=== PATIENT | female | born 1965 | race Caucasian/White ===

== ENCOUNTER → 2016-07-28 | Outpatient (CLI) | payer BC ==
[~2016-07-28] MED LIST: ALPR-412 PO; FLUT0.0529 NAE; LEVA45AE INH; LMC25 PO; MELO15TA10 PO; MONT1TAB3 PO; OXYC-57 PO; PARO30TA PO; RIZA10TA19 PO; SPRIN/30 INH; TOPI50TA24 PO; ZOLP10TA PO
== END | disposition home or self-care (01) ==
LOC: C.CPL 19:39
PROVIDERS: ATTEND Otolaryngology
DX: Z01.810 Encounter for preprocedural cardiovascular examination (principal)

== ENCOUNTER → 2016-07-31 | Day surgery (SDC) | payer BC ==
[2016-07-24 08:04] VITALS: Ht 162.6 cm; Wt 79.5 kg
--- NOTE | 2016-07-30 08:29 | History and Physical: Surg Cnt ---
History & Physical Date Jul 30, 2016. Chief Complaint sinusitis History of Present Illness The patient is a 50 year old female with complaints of chronic sinusitis Past Medical/Surgical History Medical Problems: (1) Asthma (2) Cholecystectomy (3) Migraines Additional History Hepatic Disease: No Endocrine Disorder: No Kidney Disease: No Hypertension: No Heart Disease: No Bleeding Tendencies: No Infectious Diseases: No Allergies Coded Allergies: Chocolate (Verified Adverse Reaction, Mild, MIGRAINE, 07/24/16) Diclofenac (Unverified Adverse Reaction, Mild, GI SYMPTOMS, 07/24/16) Peanut (Verified Adverse Reaction, Mild, MIGRAINE, 07/24/16) Home Medications Scheduled Fluticasone Propionate (Nasal) (Flonase), 2 SPRAYS MARION BID Lamotrigine (Lamotrigine), 2 TAB PO BID Meloxicam (Mobic), 15 MG PO QAM Paroxetine Hcl (Paxil), 30 MG PO QAM Topiramate (Topamax), 50 MG PO HS Scheduled PRN Alprazolam (Alprazolam), 1 TAB PO TID PRN for Anxiety Montelukast Sodium (Singulair), 10 MG PO HS PRN for PRN Rizatriptan Benzoate (Maxalt-[employer]), 10 MG PO UD PRN for Migraine Zolpidem Tartrate (Ambien), 10 MG PO HS PRN for Sleep Physical Examination Skin: warm/dry, no rash Eyes: normal inspection, EOMI, sclerae normal ENT: normal ENT inspection, pharynx normal Head: normocephalic, atraumatic Neck: supple, no adenopathy, trachea midline Respiratory/Chest: lungs clear, normal breath sounds, no respiratory distress Cardiovascular: regular rate, rhythm, no edema, no murmur Abdomen / GI: normal bowel sounds, non tender Back: normal inspection Extremities: normal inspection, normal range of motion Neurologic/Psych: no motor/sensory deficits, alert, normal reflexes, oriented x 3 Diagnosis chronic sinusitis Plan of Treatment endoscopic sinus surgery
[~2016-07-31] VITALS: Ht 162.6 cm; Wt 79.5 kg
[~2016-07-31] MED LIST changes: +ATROPINE SULFATE 0.1 MG/ML 5ML SYR IV PRN; +BACITRACIN OINT 15 GM TUBE ONE; +CEFAZOLIN 1000MG/55 ML D5W IV SCH; +DEXAMETHASONE SOD INJ 4 MG/ML VIAL IV PRN; +DEXAMETHASONE SOD INJ 4 MG/ML VIAL ONE; +EpHEDrine SULFATE INJ 50 MG/ML AMP IV PRN; +EpHEDrine SULFATE INJ 50 MG/ML AMP ONE; +EpINEphrine INJ 1MG/ML AMP 1 MG/ML AMP ONE; +FENTANYL CITRATE INJ 50 MCG/1 ML 2 ML VIAL IV PRN; +FENTANYL CITRATE INJ 50 MCG/1 ML 2 ML VIAL ONE; +KETOROLAC TROMETHAMINE 30 MG/ML VIAL IV. PRN; +LABETALOL HCL IV 5 MG/ML 20ML IV PRN; +LACTATED RINGER'S 1000ML 1,000 ML IV SCH; +LIDO 2%/EPINEPHRINE 1:100000 20 ML VIAL INFIL ONE; +LIDOCAINE 4% MPF SOAK 5 ML = 1 DOSE TOP ONE; +LIDOCAINE HCL 2% 2 ML VIAL (20MG/ML) ONE; +METOCLOPRAMIDE HCL INJ 5 MG/ML 2 ML VIAL IV PRN; +MIDAZOLAM HCL 1 MG/ML 2ML VIAL ONE; +MoRPHine SULFATE 10 MG/ML CARP/VIAL IV PRN; +ONDANSETRON INJ 2 MG/ML 2 ML VIAL IV PRN; +ONDANSETRON INJ 2 MG/ML 2 ML VIAL ONE; +OXYCODONE/ACETAMINOPHEN 5-325 TAB ONE; +OXYCODONE/ACETAMINOPHEN 5-325 TAB PO PRN; +PHENYLEPHRINE 100MCG/ML 5ML SYR IV PRN; +PROPOFOL IV EMULSION 10 MG/ML 20 ML VIAL IV ONE; +SODIUM CHLORIDE 0.9% 1000ML 1,000 ML IV SCH; +SODIUM CHLORIDE 0.9% INJ 10 ML VIAL ONE
--- NOTE | 2016-07-31 06:56 | History & Physical Bridge Note ---
H&P Re-Evaluation Bridge Note: I have examined the patient, reviewed the History & Physical and in the interval since the performance of the History & Physical I have noted the following changes of clinical significance: No changes noted
--- NOTE | 2016-07-31 12:51 | OPERATIVE REPORT ---
DATE OF OPERATION: 07/31/2016 PREOPERATIVE DIAGNOSIS: Chronic sinusitis. POSTOPERATIVE DIAGNOSIS: Same. PROCEDURE: Right and left frontal, right and left sphenoid, right and left total ethmoid and right and left maxillary sinus antrostomy. SURGEON: Dr. Torres. ANESTHESIA: General LMA. COMPLICATIONS: None. BLOOD LOSS: 50 mL. 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 CT documented pansinusitis. OPERATION AND FINDINGS: PROCEDURE: The patient was brought to the operating room and placed in supine position. General anesthesia was induced using LMA, prepped, draped in usual sterile manner. The right sphenoid was cannulated with guidewire and dilated using 6 mm balloon as was the left sphenoid. 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 The primary ostia had to be connected to the antrostomy opening using the shaver. The right nasofrontal duct was cannulated with guidewire and dilated using 6 mm balloon. The supraethmoidal air cell was rather large pushing the nasofrontal duct laterally. 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 The medial wall of the supraethmoidal air cell had to be fractured medially and this allowed the guidewire to enter into the frontal sinus and then the balloon followed the guidewire and the nasofrontal duct could then be dilated. At this point, the guidewire was left in place and the frontal sinusotomy was performed by removing the residual anterior wall and posterior wall of the agger nasi cell and also using the upward Blakesley forceps removing the fragments of bone around the nasofrontal duct that was fractured from the supraethmoidal air cell leaving the mucosa in the nasofrontal duct intact. At this point, the residual anterior and posterior ethmoid air cells were exonerated using the shaver and maxillary ostia was opened by removing polypoid tissue at its border. The sphenoid was opened by removing polypoid tissue at its anterior face at the inferior border of the superior turbinate. The left frontal sinusotomy, total ethmoidectomy, and maxillary sinus antrostomy was performed in a similar manner. The missed maxillary ostis had to be connected to the antrostomy opening on the left. Mini Propel stents were placed into the nasofrontal ducts, one on each side. The patient tolerated the procedure well and was taken to recovery area in satisfactory condition. I attest to the content of the Intraoperative Record and any orders documented therein. Any exceptions are noted below. AMRIK
--- NOTE | 2016-07-31 12:57 | Discharge Instructions-SurgCtr ---
Discharge Instructions Visit Reason for Visit: Chronic Sinusitis Discharge Discharge Diagnosis / Problem: same Discharge Goals Goal(s): Therapeutic intervention Activity Recommendations Activity Limitations: resume your previous activity Anesthesia . Post Anesthesia Instructions: If you have had General Anesthesia or IV Sedation: * Do not drive today. * Resume driving when surgeon permits. * Do not make important decisions or sign legal documents today. * Call surgeon for: 1. Temperature elevations greater than 101 degrees F. 2. Uncontrollable pain. 3. Excessive bleeding. 4. Persistent nausea and vomiting. 5. Medication intolerance (nausea, vomiting or rash). * For nausea and vomiting use only clear liquids such as: tea, soda, bouillon until nausea subsides, then gradually increase diet as tolerated. * If you have any concerns or questions, call your surgeon's office. If physician is unavailable and it is an emergency, call 911 or go to the nearest emergency room. . Instructions / Follow-Up Instructions / Follow-Up ACTIVITY RECOMMENDATIONS: * Being up and around is good, but no strenuous activity, heavy lifting or physical exertion for one week. * Keep your head elevated 30 degrees when lying down or sleeping. * Do not blow your nose for 48 hours, sniff back instead. * Avoid hot showers. OVER THE COUNTER MEDICATIONS: * You may use Tylenol * Avoid aspirin or aspirin containing products, e.g. as they may increase bleeding. SPECIAL CARE INSTRUCTIONS: * Expect to have bloody drainage from your nose and/or down your throat for one to three days. Change drip pad as needed. * Begin irrigating your nose with saline solution today, at least six to ten times per day and sniff back to help remove old clots or crust. * You may experience nasal and facial congestion, pain and pressure, this is normal. * Please call with any significant and/or progressive pain, redness, swelling around the eyes, visual changes, fever of 101.5 degrees F, active bleeding or any problems or concerns. * If active bleeding occurs, spray the nose three times at one minute intervals with Afrin spray and call or cell phone: . If unable to reach the doctor, go to the nearest Emergency Department. Special Diet: * Avoid extremely hot fluids. FOLLOW UP VISIT: Follow-up Visit with Dr. Torres If not already scheduled, please call to schedule. Procedures Procedures Performed: Endoscopic Sinus Surgery, Right & Left Frontal Sinuses, Right & Left Sphenoid Sinuses, Right & Left Total Ethmoidectomies Pending Studies Studies pending at discharge: no Medical Emergencies . Who to Call and When: Medical Emergencies: If at any time you feel your situation is an emergency, please call 911 immediately. . Non-Emergent Contact Non-Emergency issues call your: Primary Care Provider . . "Provider Documentation" section prepared by Macey GAINES Drug Monitoring Program Search Results: no issues identified
[2016-07-31 13:13] VITALS: TEMP 36.7
[2016-07-31 13:37] VITALS: BP 134/82; PULSE 79; O2SAT 97
--- NOTE | 2016-07-31 15:00 | Anesthesia Progress Nt - [facility] ---
Anesthesia Post Op Note Date & Time Jul 31, 2016 at 15:00 Vital Signs Pain Intensity: 3 Vital Signs Past 12 Hours Date Time Temp Pulse Resp B/P Pulse Ox O2 Delivery O2 Flow Rate FiO2 07/31/16 13:37 79 16 134/82 97 Room Air 07/31/16 13:13 36.7 88 16 141/82 97 Room Air 07/31/16 12:56 36.6 85 17 147/83 94 Room Air 07/31/16 12:56 81 20 07/31/16 12:56 80 20 94 07/31/16 12:54 147/83 07/31/16 12:51 81 14 97 07/31/16 12:51 81 14 07/31/16 12:49 146/86 07/31/16 12:46 86 25 100 07/31/16 12:46 87 25 07/31/16 12:44 144/75 07/31/16 12:41 89 25 07/31/16 12:41 90 25 100 07/31/16 12:39 150/79 07/31/16 12:36 36.4 91 12 141/85 100 Mask 6 07/31/16 12:36 98 18 100 07/31/16 12:36 96 18 07/31/16 09:11 37 78 16 135/87 97 Room Air Notes Mental Status: alert / awake / arousable, participated in evaluation Pt Amnestic to Procedure: Yes Nausea / Vomiting: adequately controlled Pain: adequately controlled Airway Patency, RR, SpO2: stable & adequate BP & HR: stable & adequate Hydration State: stable & adequate Anesthetic Complications: no major complications apparent
== END | disposition home or self-care (01) ==
LOC: X.SURG 08:48
PROVIDERS: ATTEND Otolaryngology
DX: J34.89 Other specified disorders of nose and nasal sinuses (principal); J32.9 Chronic sinusitis, unspecified; J45.909 Unspecified asthma, uncomplicated; G43.909 Migraine, unspecified, not intractable, without status migrainosus; Z98.890 Other specified postprocedural states; Z88.8 Allergy status to other drugs, medicaments and biological substances

== ENCOUNTER → 2016-09-03 | Outpatient (CLI) | payer BC ==
[~2016-09-03] MED LIST changes: -ATROPINE SULFATE 0.1 MG/ML 5ML SYR IV PRN; -BACITRACIN OINT 15 GM TUBE ONE; -CEFAZOLIN 1000MG/55 ML D5W IV SCH; -DEXAMETHASONE SOD INJ 4 MG/ML VIAL IV PRN; -DEXAMETHASONE SOD INJ 4 MG/ML VIAL ONE; -EpHEDrine SULFATE INJ 50 MG/ML AMP IV PRN; -EpHEDrine SULFATE INJ 50 MG/ML AMP ONE; -EpINEphrine INJ 1MG/ML AMP 1 MG/ML AMP ONE; -FENTANYL CITRATE INJ 50 MCG/1 ML 2 ML VIAL IV PRN; -FENTANYL CITRATE INJ 50 MCG/1 ML 2 ML VIAL ONE; -KETOROLAC TROMETHAMINE 30 MG/ML VIAL IV. PRN; -LABETALOL HCL IV 5 MG/ML 20ML IV PRN; -LACTATED RINGER'S 1000ML 1,000 ML IV SCH; -LIDO 2%/EPINEPHRINE 1:100000 20 ML VIAL INFIL ONE; -LIDOCAINE 4% MPF SOAK 5 ML = 1 DOSE TOP ONE; -LIDOCAINE HCL 2% 2 ML VIAL (20MG/ML) ONE; -METOCLOPRAMIDE HCL INJ 5 MG/ML 2 ML VIAL IV PRN; -MIDAZOLAM HCL 1 MG/ML 2ML VIAL ONE; -MONT1TAB3 PO; -MoRPHine SULFATE 10 MG/ML CARP/VIAL IV PRN; -ONDANSETRON INJ 2 MG/ML 2 ML VIAL IV PRN; -ONDANSETRON INJ 2 MG/ML 2 ML VIAL ONE; -OXYCODONE/ACETAMINOPHEN 5-325 TAB ONE; -OXYCODONE/ACETAMINOPHEN 5-325 TAB PO PRN; -PHENYLEPHRINE 100MCG/ML 5ML SYR IV PRN; -PROPOFOL IV EMULSION 10 MG/ML 20 ML VIAL IV ONE; -SODIUM CHLORIDE 0.9% 1000ML 1,000 ML IV SCH; -SODIUM CHLORIDE 0.9% INJ 10 ML VIAL ONE; -TOPI50TA24 PO
--- NOTE | 2016-09-03 19:11 | DIAGNOSTIC IMAGING REPORT ---
CHEST 2 VIEWS ROUTINE CLINICAL HISTORY: COUGH dyspnea COMPARISON STUDY: 08/01/2015 FINDINGS: The bones soft tissues and hemidiaphragms are normal. The cardiomediastinal silhouette is normal. The lungs are clear. The pulmonary vasculature is normal. IMPRESSION: Negative chest. Electronically signed by: Andrea Youssef M.D. 09/03/2016 7:10 PM Dictated Date/Time: 09/03/2016 7:09 PM
[2016-09-03 19:13] LABS: HEMATOCRIT 39.6 % (37-47); MEAN CELL VOLUME 88.6 fL (80-100); MEAN CORPUSCULAR HEMOGLOBIN 28.9 pg (25-34); MEAN CORPUSCULAR HGB CONC 32.6 g/dl (32-36); MEAN PLATELET VOLUME 10.7 fL (7.4-10.4); PLATELET COUNT 310 K/uL (130-400); RED BLOOD COUNT 4.47 M/uL (4.2-5.4); WHITE BLOOD COUNT 8.41 K/uL (4.8-10.8)
[2016-09-03 19:49] LABS: BLOOD UREA NITROGEN 16 mg/dl (7-18); BUN/CREATININE RATIO 18.1 (10-20); CALCIUM 8.4 mg/dl (8.5-10.1); CARBON DIOXIDE 32 mmol/L (21-32); CHLORIDE 110 mmol/L (98-107); GLUCOSE 78 mg/dl (70-99); POTASSIUM 3.8 mmol/L (3.5-5.1); SODIUM 146 mmol/L (136-145)
== END | disposition home or self-care (01) ==
LOC: C.LAB 18:09
PROVIDERS: ATTEND Family Medicine
DX: R05 Cough (principal); R06.00 Dyspnea, unspecified; R00.0 Tachycardia, unspecified

== ENCOUNTER → 2017-02-27 | Outpatient (CLI) | payer BC ==
[~2017-02-27] MED LIST changes: -OXYC-57 PO
--- NOTE | 2017-03-02 15:50 | MAMMOGRAPHY REPORT ---
THIS REPORT HAS BEEN AMENDED. BILATERAL DIGITAL SCREENING MAMMOGRAM TOMOSYNTHESIS WITH CAD: 02/27/2017 CLINICAL HISTORY: Routine screening. TECHNIQUE: Breast tomosynthesis in addition to standard 2D mammography was performed. Current study was also evaluated with a Computer Aided Detection (CAD) system. COMPARISON: No prior exams were available for comparison. BREAST COMPOSITION: There are scattered areas of fibroglandular density in both breasts. FINDINGS: There are minimal vascular calcifications and a few benign rim calcifications in the left b reast. No suspicious mass, architectural distortion or cluster of suspicious microcalcifications is seen. IMPRESSION: ACR BI-RADS CATEGORY 1: NEGATIVE There is no mammographic evidence of malignancy. Prior outside mammograms are currently being reques braeden and if obtained they will be reviewed, compared to the current exam to assess for any more subtle changes, and an addendum will be made to this report. Otherwise, a 1 year screening mammogram is re commended. The patient will receive written notification of the results. Approximately 10% of breast cancers are not detected with mammography. A negative mammographic report should not delay biopsy if a clinically suggestive mass is present. Shazia Hood M.D. ay/:03/02/2017 15:37:24 Engineer: Adali HAGER(Maria Antonia)(M), [facility] letter sent: Normal 06/09 BI-RADS Code: ACR BI-RADS Category 1: Negative AMENDMENT: 03/04/2017 Shazia Hood M.D. Prior outside mammograms from [facility] dated 07/05/2010, 10/09/2011, 05/13/2014, 015 became available for review. The benign rim calcifications in the left breast are stable compare d to the prior outside mammograms. No new suspicious masses, calcifications, asymmetry or distortion are identified bilaterally. Recommend routine screening in 1 year. Amended BI-RADS: ACR BI-RADS Category 2: Benign letter sent: Normal 06/09
== END | disposition home or self-care (01) ==
LOC: C.MAMM 14:01
PROVIDERS: ATTEND Nurse Practitioner Family
DX: Z12.31 Encounter for screening mammogram for malignant neoplasm of breast (principal)

== ENCOUNTER → 2017-05-27 | Outpatient (CLI) | payer BC ==
--- NOTE | 2017-05-27 11:52 | DIAGNOSTIC IMAGING REPORT ---
(CHEST) THORAX WITHOUT CLINICAL HISTORY: R91.1 Pulmonary nodule, [id number] COMPARISON STUDY: 05/16/2016 CT DOSE: 223.09 mGy.cm TECHNIQUE: CT of the thorax was performed from the thoracic inlet to the lung bases. Images are reviewed in the axial, sagittal, and coronal planes. IV contrast was not administered for this examination. A dose lowering technique was utilized adhering to the principles of ALARA. FINDINGS: Thyroid: Imaged portions of the thyroid gland are normal in appearance. Thoracic aorta: The thoracic aorta is normal in course and caliber, noting standard 3 vessel arch anatomy. Heart: The heart is normal in size and configuration, without pericardial effusion. Lungs and pleural spaces: No pleural effusions are visualized. There is no focal pulmonary consolidation. There is a stable 2 mm solid nodule within the left lung apex. There is a stable 6 mm right middle lobe pulmonary nodule abutting the minor fissure. Mediastinum: There is a stable 2 cm fluid density structure in the right pretracheal region. This is felt to be benign either representing a superior pericardial recess or a small bronchogenic cyst. Shavonne: There is no evidence of pathologic hilar adenopathy given the limitations of a noncontrast study Axilla: There is no evidence of pathologic axillary lymphadenopathy Upper abdomen: The gallbladder surgically absent Skeletal structures: There are no lytic or blastic osseous lesions. IMPRESSION: 1. Stable 2 mm left apical pulmonary nodule 2. Stable 6 mm subpleural nodule at the level of the right minor fissure 3. Current recommendations indicate no necessity for further follow-up Electronically signed by: Du Causey M.D. 05/27/2017 11:51 AM Dictated Date/Time: 05/27/2017 11:42 AM
== END | disposition home or self-care (01) ==
LOC: C.CTS 11:17
PROVIDERS: ATTEND Internal Medicine Pulmonary Disease
DX: R91.1 Solitary pulmonary nodule (principal)